=== PATIENT | male | born 1985 | race Two or more races ===

== ENCOUNTER 2023-10-06 22:39 | Emergency (ER) | payer SELFPAY | END 2023-10-06 23:02 | disposition left against medical advice (07) | LOC: EMS 22:49 | DX: R42 Dizziness and giddiness (principal); R11.0 Nausea; Z53.21 Procedure and treatment not carried out due to patient leaving prior to being seen by health care provider ==

== ENCOUNTER 2025-03-08 00:53 | Emergency (ER) | payer MEDICARE, OTHER ==
[~2025-03-08] VITALS: Ht 172.7 cm; Wt 96.0 kg
[2025-03-08 01:01] VITALS: TEMP 98.2
[2025-03-08 06:25] VITALS: BP 150/92; PULSE 51; RESP 16; O2SAT 99
== END 2025-03-08 06:27 | disposition home or self-care (01) ==
LOC: EMS 00:53
DX: R07.89 Other chest pain (principal); G40.909 Epilepsy, unspecified, not intractable, without status epilepticus
CPT/HCPCS: 71111; 99283